=== PATIENT | male | born 1960 | race Caucasian/White ===

== ENCOUNTER 2021-11-08 10:49 | Emergency (ER) | payer OTHER ==
[~2021-11-08] VITALS: Ht 172.7 cm; Wt 117.9 kg
[~2021-11-08 10:49] MED LIST: ALBU90OI INH; AZIT250 PO; LISI5 PO; METPRE4DP PO
[2021-11-08 11:19] LABS: BASOPHILS ABSOLUTE AUTO 0.02 K/mm3 (0.00-0.23); BASOPHILS PERCENT AUTO 1 % (0-2); EOSINOPHILS ABSOLUTE AUTO 0.01 K/mm3 (0.00-0.68); EOSINOPHILS PERCENT AUTO 0 % (0-6); Hematocrit 41.7 % (37.0-53.0); Hemoglobin 12.8 g/dL (13.5-17.5); IMMATURE GRAN ABSOLUTE AUTO 0.04 K/mm3 (0.00-0.10); IMMATURE GRAN PERCENT AUTO 1 % (0-1); LYMPHOCYTES ABSOLUTE AUTO 0.72 K/mm3 (0.84-5.20); LYMPHOCYTES PERCENT AUTO 17 % (21-46); MONOCYTES ABSOLUTE AUTO 0.65 K/mm3 (0.16-1.47); MONOCYTES PERCENT AUTO 15 % (4-13); Mean Corpuscular HGB 23.1 pg (26.0-34.0); Mean Corpuscular HGB Conc 30.7 g/dL (31.5-36.5); Mean Corpuscular Volume 75 fL (80-100); Mean Platelet Volume 11.6 fL (9.1-12.4); NEUTROPHILS ABSOLUTE AUTO 2.81 K/mm3 (1.96-9.15); NEUTROPHILS PERCENT AUTO 66 % (41-73); Platelet Count 171 K/mm3 (150-400); RDW Coefficient Variation 14.6 % (11.7-14.2); RDW Standard Deviation 39.4 fL (35.1-46.3); Red Blood Cell Count 5.53 M/mm3 (4.30-5.90); White Blood Cell Count 4.25 K/mm3 (4.00-11.30)
[2021-11-08 11:49] LABS: Albumin, Blood 3.3 g/dL (3.4-5.0); Albumin/Globulin Ratio 0.8 (0.8-1.8); Bilirubin, Total 0.4 mg/dL (0.1-1.0); Bun/Creatinine Ratio 14.8 (12.0-20.0); Calcium, Blood 8.9 mg/dL (8.5-10.1); Creatinine, Blood 2.16 mg/dL (0.60-1.20); Globulin, Blood 4.1 g/dL (2.2-4.0); Potassium, Blood 4.3 mmol/L (3.5-5.5); Total Protein, Blood 7.4 g/dL (6.4-8.2)
[2021-11-08] MEDS ORDERED: HYDR1TAB94 PO (12:45)
[2021-11-08] MEDS ORDERED: AMLODIPINE BESY10 MG PO (13:31)
[2021-11-08] MEDS ORDERED: CARVEDILOL12.5 MG PO (13:31)
[2021-11-08] MEDS ORDERED: ALLO100 PO (13:31)
[2021-11-08] MEDS ORDERED: METO50 PO (13:31)
== END 2021-11-08 13:45 | disposition home or self-care (01) ==
LOC: ER 10:49
PROVIDERS: Emergency Medicine
DX: R55 Syncope and collapse (principal); U07.1 COVID-19; E86.0 Dehydration; F17.210 Nicotine dependence, cigarettes, uncomplicated; I10 Essential (primary) hypertension; Z85.46 Personal history of malignant neoplasm of prostate; Z79.899 Other long term (current) drug therapy; V49.40XA Driver injured in collision with unspecified motor vehicles in traffic accident, initial encounter
CPT/HCPCS: 70450; 71045; 72125; 80053; 84484; 85025; 86850; 86900; 86901; 93005; 93010; 99285-25; A9270; J7120

== ENCOUNTER 2025-08-24 | Inpatient (IN) | payer MEDICARE, OTHER ==
[~2025-08-24] VITALS: Ht 172.7 cm; Wt 110.0 kg
[~2025-08-24] MED LIST changes: +ALLO100 PO; +AMLODIPINE BESY10 MG PO; +CARVEDILOL12.5 MG PO; +HYDR1TAB94 PO; +METO50 PO
[2025-08-24] MEDS ORDERED: Ondansetron HCl 2 MG / ML 2ML Vial IV PRN ×2 (00:25→08:45)
[2025-08-24 00:29] LABS: BASOPHILS ABSOLUTE AUTO 0.04 K/mm3 (0.00-0.23); BASOPHILS PERCENT AUTO 0 % (0-2); EOSINOPHILS ABSOLUTE AUTO 0.04 K/mm3 (0.00-0.68); EOSINOPHILS PERCENT AUTO 0 % (0-6); Hematocrit 40.6 % (37.0-53.0); Hemoglobin 12.4 g/dL (13.5-17.5); IMMATURE GRAN ABSOLUTE AUTO 0.03 K/mm3 (0.00-0.10); IMMATURE GRAN PERCENT AUTO 0 % (0-1); LYMPHOCYTES ABSOLUTE AUTO 0.59 K/mm3 (0.84-5.20); LYMPHOCYTES PERCENT AUTO 6 % (21-46); MONOCYTES ABSOLUTE AUTO 0.53 K/mm3 (0.16-1.47); MONOCYTES PERCENT AUTO 6 % (4-13); Mean Corpuscular HGB Conc 30.5 g/dL (31.5-36.5); Mean Corpuscular Volume 75 fL (80-100); NEUTROPHILS ABSOLUTE AUTO 8.06 K/mm3 (1.96-9.15); NEUTROPHILS PERCENT AUTO 87 % (41-73); NRBC ABSOLUTE 0.00 K/mm3 (0.00-0.02); NRBC Auto 0.0 /100 WBC (0.0-0.2); Platelet Count 230 K/mm3 (150-400); RDW Coefficient Variation 14.6 % (11.7-14.2); RDW Standard Deviation 37.3 fL (35.1-46.3)
[2025-08-24] MEDS ORDERED: Morphine Sulfate 4 MG/1 ML Injection IV ONE (00:30)
[2025-08-24 00:50] LABS: Alanine Aminotransfer (ALT/SGP 15.0 U/L (12-78); Albumin, Blood 3.1 g/dL (3.4-5.0); Albumin/Globulin Ratio 0.7 (0.8-1.8); Anion Gap 2.0 mmol/L (3-11); Aspartate Aminotrans (AST/SGOT 10.0 U/L (12-37); Bilirubin, Total 0.9 mg/dL (0.1-1.0); Blood Urea Nitrogen 25.0 mg/dL (8-24); CO2, Blood 32.0 mmol/L (21-32); Calcium, Blood 9.0 mg/dL (8.5-10.1); Chloride, Blood 105.0 mmol/L (98-108); Creatinine, Blood 2.16 mg/dL (0.60-1.20); Globulin, Blood 4.2 g/dL (2.2-4.0); Glucose, Blood 117.0 mg/dL (70-99); Potassium, Blood 4.1 mmol/L (3.5-5.5); Sodium, Blood 135.0 mmol/L (136-145); Total Protein, Blood 7.3 g/dL (6.4-8.2)
[2025-08-24 02:01] LABS: Source, Urine Suprapubic Cath
[2025-08-24 02:38] LABS: Bilirubin, Urine Neg (Neg); Glucose Qualitative, Urine 3+ (Neg); Ketones, Urine 1+ (Neg); Leukocyte Esterase, Urine 3+ (Neg); Protein, Urine 3+ (Neg); Specific Gravity, Urine 1.020 (1.003-1.022); Urobilinogen, Urine NORM (Normal)
[2025-08-24 02:49] LABS: Color, Urine Brown (P-Yellow)
[2025-08-24 02:50] LABS: Red Blood Cells, Urine 50-100 /hpf (0-2); White Blood Cells, Urine 50-100 /hpf (0-5)
[2025-08-24] MEDS ORDERED: CefTRIAXone Sodium 1,000 MG in NS 100 ML IV ONE (03:00)
[2025-08-24] MEDS ORDERED: FLU VACC TS2025-26(6MOS UP)/PF 45 MCG/0.5 ML SYRINGE IM SCH (03:15)
[2025-08-24 03:54] VITALS: BP 148/86
[2025-08-24] MEDS ORDERED: FentaNYL Citrate 50 MCG/ML 2 ML Injection IV PRN (04:15)
[2025-08-24] MEDS ORDERED: HydrALAZINE HCl 20 MG / ML 1ML Vial IV PRN (04:15)
[2025-08-24] MEDS ORDERED: JARDIANCE10 MG PO (04:51)
[2025-08-24] MEDS ORDERED: VITAMIN D325 MC3 PO (04:51)
[2025-08-24] MEDS ORDERED: CALCITRIOL0.25 MC4 PO (04:52)
[2025-08-24] MEDS ORDERED: DOCU100 PO (04:53)
[2025-08-24] MEDS ORDERED: GABA100 PO (04:54)
--- NOTE | 2025-08-24 05:20 | NUR ---
SHIFT SUMMARY NOC PT A/O X 4. PLEASANT AND COOPERATIVE WITH CARE. VSS. ADMIT FOR SURGICAL OVERFLOW FOR SBO, SURGICAL CONSULT HAS BEEN CALLED IN FOR TODAY. PT ABD IS VERY DISTENDED AND PAINFUL, AND IS BEING MANAGED PER EMAR. PT CAME TO UNIT ON 2L/NC DUE TO GETTING MORPINE IN ED. PT HAS SUPRAPUBIC CATHETER THAT WAS REPLACED IN ED, WHICH HAS YELLOW DISCHARGE COMING FROM SITE, THIS WAS NOTED IN REPORT FROM ED. PT IS NPO. PT CURRENTLY RESTING WITH BED IN LOWEST POSITION, AND CALL LIGHT WITHIN REACH.
[2025-08-24 08:29] VITALS: BP 129/82
[2025-08-24] MEDS ORDERED: Enoxaparin 40 MG/0.4 ML SYR SC SCH (09:00)
--- NOTE | 2025-08-24 09:05 | NUR ---
PT HAD X2 EPISODES OF VOMTIING, GREEN-TINGED WITH COFFEE GROUNDS. PT REPORTING 10/10 ABD PAIN. MEDICATED PER DEC. DR CRAWFORD AND DR ALDRICH NOTIFIED. NO NEW ORDERS AT THIS TIME.
[2025-08-24] MEDS ORDERED: HYDROmorphone HCl/Pf 1MG SYR IV PRN ×2 (11:20→23:36)
[2025-08-24] MEDS ORDERED: Prochlorperazine Edisylate 10 mg Vial IV PRN (11:25)
[2025-08-24 15:13] VITALS: BP 147/102
--- NOTE | 2025-08-24 15:25 | NUR ---
SUDDEN EMESIS OF GREEN LIQUID
--- NOTE | 2025-08-24 17:23 | NUR ---
SHIFT SUMMARY PT IS A/OX4. SBA. PT REPORTING ABDOMINAL PAIN AND NAUSEA THROUGHOUT THIS SHIFT, MEDICATED PER DEC. PT VOMITING X3 THIS SHIFT. GREEN-TINGED IN COLOR WITH COFFEE GROUNDS. DR ALDRICH AND DR CRAWFORD AWARE. SMALL BOWEL FOLLOW THROUGH IN PROGRESS AT THIS TIME. SUPRAPUBIC CATHETER PATENT AND DRAINING DARK YELLOW COLORED URINE WITH RED SEDIMENT. PT REMAINS NPO. ON 1L NC, SATS >92%.
[2025-08-24] MEDS ORDERED: NS 1,000 ML IV SCH (19:35)
[2025-08-24 19:37] VITALS: BP 149/111
[2025-08-24 23:07] VITALS: BP 130/105
[2025-08-25] VITALS (72 sets, daily range): BP systolic 78–141; BP diastolic 52–94
--- NOTE | 2025-08-25 01:55 | NUR ---
PT PLACED ON BIOX DUE TO POSSIBLE ASPIRATION FROM SBO AND IV NARCOTICS FOR PAIN RELIEF. PT WAS ON 2L/NC DUE TO DAISY AND NOT ABLE TO TOLERATE CPAP PER PT. PT STARTED TO DESAT INTO LOW 80'S WITH HR IN 120'S-130'S. HOSPITALIST NOTIFIED AND O2 INCREASED TO 6L/HFNC AND NO TELE ORDER AT THIS TIME. RT NOTIFIED OF PT DESAT AND CAME TO ASSESS PT AFTER OXYMASK APPLIED DUE TO PT BEING A MOUTH BREATHER. PT SPO2 >90% WHEN ON 11L/OXYMASK.
--- NOTE | 2025-08-25 02:49 | NUR ---
HOSPITALIST NOTIFIED THAT PT O2 REQUIREMENTS HAVE INCREASED FROM 2L/NC TO 11L/OXYMASK WHILE SLEEPING TO MAINTAIN SPO2 >90%. PT HR ALSO HAS MAINTAINED FROM 110'S-120'S SINCE PT PLACED ON CONTINOUS PULSE OXIMETRY @ 2336. ORDERS FOR TELEMETRY AND ONE TIME DOSE IV LOPRESSOR 5 MG GIVEN.
[2025-08-25] MEDS ORDERED: Metoprolol Tartrate 1 MG/ML 5 ML VIAL IV ONE (02:50)
--- NOTE | 2025-08-25 04:41 | NUR ---
SHIFT SUMMARY NOC PT A/O X 4. PLEASANT AND COOPERATIVE WITH CARE. PT HS HAD INTERMITTENT N/V WITH GREEEN/BROWN EMESIS, BUT PT REPORTS LESS N/S, AND WAS MEDICATED PER EMAR. PT DESATS VERY QUICKLY WHILE ASLEEP AND REPORTS SEVERE DAISY, BUT CAN NOT TOLERATE CPAP. PT PLACED ON 6L/OXYMASK AND ENDED UP REQUIRING 12L/OXYMASK TO MAINTAIN SPO2 >92%, WHEN PT DECIDES TO KEEP MASK ON AND TAKES OFF FREQUENTLY. BP/HR ELEVATED WITH HR IN 110'S-130'S TOUCHING 140'S WITH EXERTION. PT PLACED ON TELE AND GIVEN IV LOPRESSOR 5 MG X ONE DOSE AND HR MAINTAINED SINUS RHYTHM IN MID 90'S-LOW 100'S. PT REMAINS NPO DUE TO SBO AND REPORTS NOT EATING OR DRINKING ANYTHING SINCE 08/23/25, HOSPITALIST NOTIFIED AND MAINTENENCE IVF NS @ 75 ML/HR STARTED. PT IS AWAITING SECOND SMALL BOWEL FOLLOW THROUGH TEST TODAY. PT SUPRAPUBIC CATHTER IS DRAINING W/O ISSUE AND NO DISCHARGE AROUND SITE NOTED. PT CURRENTLY RESTING WITH BED IN LOWEST POSITION, AND CALL LIGHT WITHIN REACH.
--- NOTE | 2025-08-25 04:54 | NUR ---
PT KEEPS TAKING OFF OXYMASK AND DESATS INTO LOW 80'S, DESPITE BEING EDUCATED ON THE RISKS WITH ALLOWING SPO2 TO REMAIN <90%. PT SPO2 IS MAINTAINING 85% ON 12L/OXYMASK.
[2025-08-25] MEDS ORDERED: Piperacillin/Tazobactam Sod 4.5 GM in NS 100 ML IV SCH ×2 (05:40→06:23)
[2025-08-25 06:02] LABS: BASOPHILS ABSOLUTE AUTO 0.05 K/mm3 (0.00-0.23); BASOPHILS PERCENT AUTO 0 % (0-2); EOSINOPHILS ABSOLUTE AUTO 0.00 K/mm3 (0.00-0.68); EOSINOPHILS PERCENT AUTO 0 % (0-6); Hematocrit 50.1 % (37.0-53.0); Hemoglobin 15.1 g/dL (13.5-17.5); IMMATURE GRAN ABSOLUTE AUTO 0.11 K/mm3 (0.00-0.10); IMMATURE GRAN PERCENT AUTO 1 % (0-1); LYMPHOCYTES ABSOLUTE AUTO 0.73 K/mm3 (0.84-5.20); LYMPHOCYTES PERCENT AUTO 3 % (21-46); MONOCYTES ABSOLUTE AUTO 1.19 K/mm3 (0.16-1.47); MONOCYTES PERCENT AUTO 5 % (4-13); Mean Corpuscular HGB Conc 30.1 g/dL (31.5-36.5); Mean Corpuscular Volume 77 fL (80-100); NEUTROPHILS ABSOLUTE AUTO 20.89 K/mm3 (1.96-9.15); NEUTROPHILS PERCENT AUTO 91 % (41-73); NRBC ABSOLUTE 0.03 K/mm3 (0.00-0.02); NRBC Auto 0.1 /100 WBC (0.0-0.2); Platelet Count 307 K/mm3 (150-400); RDW Coefficient Variation 16.6 % (11.7-14.2); RDW Standard Deviation 40.3 fL (35.1-46.3)
[2025-08-25 06:32] LABS: Alanine Aminotransfer (ALT/SGP 38.0 U/L (12-78); Albumin, Blood 3.4 g/dL (3.4-5.0); Albumin/Globulin Ratio 0.7 (0.8-1.8); Anion Gap 14.0 mmol/L (3-11); Aspartate Aminotrans (AST/SGOT 55.0 U/L (12-37); Bilirubin, Total 1.2 mg/dL (0.1-1.0); Blood Urea Nitrogen 34.0 mg/dL (8-24); CO2, Blood 26.0 mmol/L (21-32); Calcium, Blood 9.7 mg/dL (8.5-10.1); Chloride, Blood 104.0 mmol/L (98-108); Creatinine, Blood 3.46 mg/dL (0.60-1.20); Globulin, Blood 5.2 g/dL (2.2-4.0); Glucose, Blood 161.0 mg/dL (70-99); Potassium, Blood 4.6 mmol/L (3.5-5.5); Sodium, Blood 139.0 mmol/L (136-145); Total Protein, Blood 8.6 g/dL (6.4-8.2)
--- NOTE | 2025-08-25 06:45 | NUR ---
ICU RM 09 RN CALLED AND UPDATED ON PT BLOOD PRESSURE DROP FROM 117/89 PRE NGT TO 92/52 AND 84/60 POST AND IV LASIX 40 MG.
[2025-08-25] MEDS ORDERED: FentaNYL Citrate 50 MCG/ML 2 ML Injection IV PRN (06:55)
[2025-08-25] MEDS ORDERED: Naloxone HCl 0.4MG / ML 1ML Vial ONE (07:18)
--- NOTE | 2025-08-25 07:18 | NUR ---
NO AD/POLST ON FILE. NO POLST ON STATE POLST REGISRTY. PRIMARY RN STATED HE WILL BE CONTACTING PT'S FAMILY RE: RAPID RESPONSE AND PT'S TRANSFER TO ICU. PC TO REMAIN AVAILABLE NEEDED.
[2025-08-25] MEDS ORDERED: NS 500 ML IV ONE (07:20)
[2025-08-25] MEDS ORDERED: Naloxone HCl 1MG / ML 2ML SYR IV ONE (07:20)
[2025-08-25] MEDS ORDERED: Naloxone HCl 1MG / ML 2ML SYR IV PRN (07:25)
[2025-08-25] MEDS ORDERED: NS 1,000 ML IV SCH ×2 (07:25→20:55)
[2025-08-25] MEDS ORDERED: Piperacillin/Tazobactam Sod 3.375 GM in NS 100 ML IV SCH (08:00)
--- NOTE | 2025-08-25 08:30 | NUR ---
palliative care note: consult received due to rapid response this morning. pt transferred to ICU 9. medical record review completed. No polst or AD found on file or through [facility].
[2025-08-25 08:49] LABS: pH Blood Venous 7.34 (7.34-7.37)
[2025-08-25 08:50] LABS: Magnesium, Blood 2.3 mg/dL (1.6-2.4); Phosphorus, Blood 4.7 mg/dL (2.5-4.9)
--- NOTE | 2025-08-25 08:58 | NUR ---
PT TRANSFERRED TO ICU 09 @ 0710 WITH ALL BELONGINGS AND HOME MEDICATOINS IN PT LABELED GREEN MED BAG. BEDSIDE REPORT GIVEN TO YARN WINDER ANG AND ERIC OF CARE COMPLETED.
--- NOTE | 2025-08-25 09:05 | NUR ---
PT REQUESTED THAT HIS UNCLE YEVGENIY BE NOTIFIED OF TRANSRER TO ICU 09. YEVGENIY WAS CONTACED AND INFORMED OF PT TRANSFER TO ICU O9, THEY STATED THAT THEY LIVED UP IN [place] AND WILL DRIVE DOWN SOON POSSIBLE TO VISIT WITH PT. YEVGENIY NUMBER IS . WEB MASTER HAS NUMBER ON BOARD AND WAS INFORMED THAT CONTACT WITH FAMILY HAD BEEN COMPLETED.
--- NOTE | 2025-08-25 09:09 | NUR ---
CARE ASSUMPTION PT BROUGHT TO ICU 9 FROM MEDICAL FLOOR FOLLOWING RAPID RESPONSE. WHEN PT ARRIVED HE WAS MINIMALLY RESPONSIVE TO VERBAL STIMULI. DR. SEO AT BEDSIDE ORDERING IV NARCAN. AFTER NARCAN ADMINISTRATION PT BECOMING MORE RESPONSIVE AND 02 NEEDS DECREASING. PT'S BP LOW SO LEVOPHED GTT STARTED ALONG WITH NS BOLUS. PT'S BP IMPROVING AND LEVOPHED GTT TITRATED OFF, NS INFUSING AT 100 ML/HR. BP STABLE W MAP >65. DR. TERAN AND DR. CRAWFORD UPDATED ON PT'S CONDITION. PER DR. CRAWFORD PT TO POSSIBLY HAVE SURGERY TOMMOROW SO IT IS OK TO GIVE PT HIS LOVENOX TODAY. PT CURRENTLY RESTING IN BED APPEARING COMFORTABLE ON 2L OXYMASK. PT'S UNCLE NOTIFIED OF CHANGE IN PT'S CONDITION AND PT'S LOCATION. PT'S UNCLE VERBALIZING INTENT ON COMING TO THE HOSPITAL.
--- NOTE | 2025-08-25 09:09 | NUR ---
ALL EQUIPMENT FROM MEDICAL FLOOR TO INCLUDE BED, IV PUMP WITH 2 CHANNELS, TELEMETRY BOX, BLUE TOOTH BIOX CHIP, AND O2 TANK RETURNED TO UNIT CLEANED PER PROTOCOL. TELE BOX TUBED BACK TO PCU TERMITE TECHNICIAN.
--- NOTE | 2025-08-25 09:12 | NUR ---
DURING SPOT CHECK AROUND 0530 PT FOUND TO HAVE COARSE/CRACKLES IN LUNGS WITH TROUBLE BREATHING AND INABLITY TO COUGH. RT ASSESSED PT WELL. HOSPITALIST WAS ON UNIT AND ALERTED TO CHANGE IN PT CONDITION AND ASSESSED PT AND ORDERED NGT PLACEMENT WITH VERIFICATION WITH IV LASIX X 1, WELL CMP, BNP, CBC. 1V CXR, START IV ABX ZOSYN 4.5G Q6. NGT PLACED AND ALL LABS AND MEDICATIONS ORDERED WITH LASIX GIVEN AND TRANSFER TO ICU 09. NGT OUTPUT TOTALED 4.8L UPON DEPARTURE TO ICU.
[2025-08-25] MEDS ORDERED: NS 250 ML IV PRN (16:05)
--- NOTE | 2025-08-25 17:15 | NUR ---
SHIFT SUMMARY PATIENT A&OX4 AND ABLE TO MAKE NEEDS KNOWN. NO FOCAL DEFICITS. PATIENT HR SINUS TACH IN THE 100S-110S. PICC TO KHADRA PATENT INFUSING LEVOPHED GTT PER EMAR. SEE FLOWSHEET FOR TITRATIONS. BP STABLE WITH MAPS >65. LR INFUSING AT 125ML/HR. PATIENT ON 2L O2 VIA NC WITH SPO2 >90%. NGT PATENT AND DRAINING BILE TO LOW INTERMITTENT SUCTION. SP CATH PATENT AND DRAINING SCANT YELLOW URINE TO GRAVITY. PROVIDER AWARE. PATIENT TO HAVE SURGERY TOMORROW AT [address] CRAWFORD. HE WILL DO CONSENT IN THE MORNING. FAMILY AT BEDSIDE TODAY UPDATED ON PLAN OF CARE. CALL LIGHT IN REACH. BED IN LOWEST POSITION.
[2025-08-25 20:32] LABS: Anion Gap 8.0 mmol/L (3-11); Blood Urea Nitrogen 50.0 mg/dL (8-24); CO2, Blood 33.0 mmol/L (21-32); Calcium, Blood 8.9 mg/dL (8.5-10.1); Chloride, Blood 104.0 mmol/L (98-108); Creatinine, Blood 4.58 mg/dL (0.60-1.20); Glucose, Blood 119.0 mg/dL (70-99); Potassium, Blood 4.1 mmol/L (3.5-5.5); Sodium, Blood 141.0 mmol/L (136-145)
[2025-08-25] MEDS ORDERED: NS 1,000 ML BAG IR SCH (20:50)
[2025-08-26] VITALS (100 sets, daily range): BP systolic 63–148; BP diastolic 43–93
--- NOTE | 2025-08-26 02:00 | NUR ---
PT UPDATE: PT HAD CARDIAC RHYTHM CHANGE W/ SUSTAINED HR IN 180S-200. DR SEO NOTIFIED. ORDERS OBTAINED FOR ADENOSINE, SEE EMAR FOR ADMINISTRATION. PT C/O OF 5/10 CHEST PAIN, DENIED SOB. SBP SOFT, ORDERS FOR NS BOLUS OBTAINED. DR SEO AT BEDSIDE. PT PREPARED FOR CARDIOVERSION. DR SEO DISCUSSED PROCEDURE W/PT, WITNESSED BY THIS RN. PT AGREEABLE TO PROCEDURE. PT CARDIOVERTED AT 0243. PT TOLERATED PROCEDURE WELL. PT CONTINUED TO SUSTAIN ELEVATED HR IN 180S. AMIO PUSH ORDERED AND ADMINISTERED W/ NO RHYTHM CHANGE OBSERVED. SBP REMAINED SOFT W/MAP<65 DESPITE BOLUS. ADDITIONAL NS BOLUSES ORDERED AND ADMINSTERED. SBP REMAINED SOFT, MAP<65. LEVOPHED GTT RESTARTED, SEE FLOWSHEET FOR TITRATIONS, TO MAINTAIN MAP>65.
[2025-08-26 02:33] LABS: Hematocrit 39.4 % (37.0-53.0); Hemoglobin 11.8 g/dL (13.5-17.5); Mean Corpuscular HGB Conc 29.9 g/dL (31.5-36.5); Mean Corpuscular Volume 78 fL (80-100); NRBC ABSOLUTE 0.00 K/mm3 (0.00-0.02); NRBC Auto 0.0 /100 WBC (0.0-0.2); Platelet Count 211 K/mm3 (150-400); RDW Coefficient Variation 15.4 % (11.7-14.2); RDW Standard Deviation 41.0 fL (35.1-46.3)
[2025-08-26] MEDS ORDERED: NS 1,000 ML IV ONE (02:35)
[2025-08-26] MEDS ORDERED: NS 500 ML IV ONE ×2 (02:35→03:55)
[2025-08-26] MEDS ORDERED: Midazolam HCl 1MG / ML 2ML Vial ONE ×2 (02:37→09:29)
[2025-08-26] MEDS ORDERED: Midazolam HCl 1MG / ML 2ML Vial IV ONE ×2 (02:40→04:40)
[2025-08-26] MEDS ORDERED: FentaNYL Citrate 50 MCG/ML 2 ML Injection ONE ×5 (02:44→11:38)
[2025-08-26] MEDS ORDERED: Amiodarone HCl 450 MG in NS 250 ML IV SCH (02:50)
[2025-08-26 03:04] LABS: BAND PERCENT MAN 18 % (0-8); BASOPHILS ABSOLUTE MAN 0.00 K/mm3 (0.00-0.23); BASOPHILS PERCENT MAN 0 % (0-2); EOSINOPHILS ABSOLUTE MAN 0.00 K/mm3 (0.00-0.68); EOSINOPHILS PERCENT MAN 0 % (0-6); LYMPHOCYTES ABSOLUTE MAN 0.47 K/mm3 (0.84-5.20); LYMPHOCYTES PERCENT MAN 4 % (21-46); MONOCYTES ABSOLUTE MAN 0.47 K/mm3 (0.16-1.47); MONOCYTES PERCENT MAN 4 % (4-13); NEUTROPHILS ABSOLUTE MAN 10.82 K/mm3 (1.96-9.15); SEG NEUTROPHILS PERCENT MAN 74 % (41-73)
[2025-08-26 03:11] LABS: Magnesium, Blood 2.4 mg/dL (1.6-2.4)
[2025-08-26] MEDS ORDERED: NS 1,000 ML IV SCH (03:15)
[2025-08-26 03:22] LABS: Alanine Aminotransfer (ALT/SGP 20.0 U/L (12-78); Albumin, Blood 2.5 g/dL (3.4-5.0); Anion Gap 7.0 mmol/L (3-11); Aspartate Aminotrans (AST/SGOT 17.0 U/L (12-37); Bilirubin, Total 1.0 mg/dL (0.1-1.0); Blood Urea Nitrogen 53.0 mg/dL (8-24); CO2, Blood 34.0 mmol/L (21-32); Calcium, Blood 8.2 mg/dL (8.5-10.1); Chloride, Blood 107.0 mmol/L (98-108); Creatinine, Blood 4.45 mg/dL (0.60-1.20); Glucose, Blood 116.0 mg/dL (70-99); Phosphorus, Blood 3.9 mg/dL (2.5-4.9); Potassium, Blood 4.0 mmol/L (3.5-5.5); Sodium, Blood 144.0 mmol/L (136-145)
[2025-08-26 03:23] LABS: Albumin/Globulin Ratio 0.6 (0.8-1.8); Globulin, Blood 4.0 g/dL (2.2-4.0); Total Protein, Blood 6.5 g/dL (6.4-8.2)
[2025-08-26] MEDS ORDERED: FentaNYL Citrate 50 MCG/ML 2 ML Injection IV ONE ×2 (03:25→04:35)
[2025-08-26] MEDS ORDERED: Amiodarone HCl 50 MG / ML 3 ML Amp IV ONE ×2 (03:25→03:39)
[2025-08-26] MEDS ORDERED: Cefepime HCl 1,000 MG in NS 100 ML IV SCH ×2 (03:40→03:43)
--- NOTE | 2025-08-26 04:30 | NUR ---
PT UPDATE: DR SEO BACK TO ROOM. PT CONTINUES TO HAVE SUSTAINED HR IN 150S-200S.PT PREPARED FOR SECOND CARDIOVERSION. 50MCG FENTANYL GIVEN AT 0437 1MG VERSED GIVEN AT 0438 PT CARDIOVERTED AT 2005 @0440- NO RHYTM CHANGE OBSERVED.
[2025-08-26] MEDS ORDERED: Midazolam HCL 1 MG/ML 5MLVIAL ONE (05:55)
--- NOTE | 2025-08-26 06:00 | NUR ---
PT UPDATE: DR SEO BACK TO ROOM. PT ENDORSING CHEST PAIN. HR CONTINUES TO BE ELEVATED. DR SEO DISCUSSED RISKS AND BENEFITS OF BACK TO BACK CARDIOVERSION. PT REQUESTING AND AGREEABLE TO PROCEDURE. 0603-2MG VERSED GIVEN 0605-50MCG FENTANYL GIVEN 0607- PT CARDIOVERTED W/ NO RHYTHM CHANGE
[2025-08-26] MEDS ORDERED: Midazolam HCL 1 MG/ML 5MLVIAL IV ONE (06:15)
--- NOTE | 2025-08-26 06:30 | NUR ---
SHIFT SUMMARY: PT HAD A VERY LONG NIGHT. HE REMAINS VERY DROWSY THIS MORNING, AROUSES EASILY TO VOICE. PT REMAINS A&OX 3-4, UNSURE OF DATE/MONTH AT TIMES, BUT ABLE TO COMMUNICATE APPROPRIATELY AND MAKE NEEDS KNOWN. AFEBRILE. PT HAD CARDIAC CHANGE LAST NIGHT W/ SUSTAINED ELEVATED HR IN THE 180S-200S. HEART RHYTM INTERMITTENTLY CHANGED BETWEEN SINUS TACH, AFIB/AFLUTTER. PT ENDORSED CHEST PAIN DURING THESE EPISODES. DR SEO CALLED MULTIPLE TIMES FOR STATUS UPDATES, ORDERS OBTAINED. DR SOE ALSO CAME TO BEDSIDE ON SEVERAL OCCASSIONS. SEE PREVIOUS NOTES. PT CONTINUES TO HAVE ELEVATED SUSTAINED HR DESPITE INTERVENTIONS AND ENDORSES CHEST PAIN. PT REQUIRED INCREASED OXYGEN DEMANDS DUE TO CARDIAC CHANGES LAST NIGHT. PT STARTED SHIFT ON 2L O2 VIA NC W/ SATS>93%, NOW PT ON OXYMASK AT 10L 02, SATS>93%. PT DENIES ABD PAIN BUT DID HAVE SMALL EPISODE IN WHICH HE ENDORSED NAUSEA. NO VOMITING. NG TUBE REMAINS IN PLACE, DRAINING TO LIS. SUPRAPUBIC CATH REMAINS PATENT, DRAINING TO GRAVITY. URINE APPEARS CLEARER THIS MORNING. PT HAD GOOD OUTPUT FROM BOTH NGT AND CATHETER, SEE I/O'S. PICC REMAINS IN KHADRA. INFUSING ARE NS AT 125ML/HR, PHENYLEPHRINE 30MCG/MIN, AND AMIODORONE GTT. THIS RN TO REPORT TO ONCOMING RN. CARE CONTINUES.
[2025-08-26] MEDS ORDERED: NUBEQA300 MG PO (06:32)
--- NOTE | 2025-08-26 07:00 | NUR ---
CARE ASSUMPTION DURING BEDSIDE SHIFT REPORT W VINEET RN THE PT IS LYING IN BED ALERT AND ORIENTED UPON OUR ENTRY TO THE . PT'S MONITOR SHOWING AFIB 150-180. BP W STABLE MAP > 65 W PHENYLEPHRINE INFUSING AT 30 MCG/MIN. SPO2 >92% ON 4L OXYMASK. PT REPORTING 4/10 CHEST TIGHTNESS BUT DOES NOT APPEAR IN DISTRESS HE IS RESTING COMFORTABLY AFTER OUR INTERACTION. SINUS RYTHYM CONVERSION AT APPROX 0800 THE PT SPONTANEOUSLY CONVERTED TO SR 90'S. DR. BROWN NOTIFIED OF THIS AND VERBAL ORDERS TO GIVE THE PT DIGOXIN AND TO KEEP PT ON AMIODARONE GTT 1MG/HR CONTINUOUS UNTIL AFTER HE HAS SURGERY. DR. CRAWFORD CALLED AND NOTIFIED OF CHANGE IN PT'S CONDITION. DR. CRAWFORD VERBALIZING INTENTION OF SPEAKING WITH ANETHESIA TEAM AND CALL THIS RN BACK WITH THE PLAN FOR SURGERY. HEPARIN GTT INITIATION TO BE HELD UNTIL PLAN FOR SURGERY IS MADE. PHARMACY NOTIIFED OF THIS.
[2025-08-26 09:27] LABS: Anti-Xa UFH, PHA Monitoring <0.10 IU/mL; Prothrombin Time Results 12.8 Sec (9.7-11.5)
[2025-08-26] MEDS ORDERED: Rocuronium Bromide 10 MG/ML 5ML Injection IV ONE (09:29)
[2025-08-26] MEDS ORDERED: Bupivacaine 0.5% HCl 5 MG/ML 30MLVIAL ONE (09:38)
--- NOTE | 2025-08-26 09:54 | NUR ---
PT TO OR FOR SURGERY
--- NOTE | 2025-08-26 10:19 | NUR ---
PT PRE-OP'ED IN ICU 9 HE IS ON AN AMIODERONE AND PHYLEPHERINE DRIP. Pre-Op teaching done. Pt verbalizes understanding. History, Chart, Medications and Allergies reviewed before start of procedure.Patient confirms NPO status and agrees with scheduled surgery. PT HAS NG TUBE DRAINING DARK BROWN FLUID PT HAS SUPRAPUBIC CATH DRAINING YELLOW URINE
[2025-08-26] MEDS ORDERED: HYDROmorphone HCl/Pf 1MG SYR IV PRN (10:25)
[2025-08-26] MEDS ORDERED: Ondansetron HCl 2 MG / ML 2ML Vial IV PRN (10:25)
[2025-08-26] MEDS ORDERED: FentaNYL Citrate 50 MCG/ML 2 ML Injection IV PRN (10:30)
[2025-08-26] MEDS ORDERED: Sugammadex Sodium 200 MG/2ML SDV (100 MG/ML) ONE (11:26)
[2025-08-26] MEDS ORDERED: OxyCODONE 5 mg/Acetamin 325 mg TABLET PO PRN (12:15)
--- NOTE | 2025-08-26 13:00 | NUR ---
ARRIVAL TO UNIT - 1204 PT ARRIVED TO UNIT VIA BED FROM OR. BEDSIDE REPORT GIVEN. PT ROUSABLE TO VERBAL STIMULI, ABLE TO MAKE NEEDS KNOWN. RESPONDS TO QUESTIONS APPROPRIATELY. SPO2 >96% ON 100% NONREBREATHER MASK. HR 80-90s, MAP >65 c PHENYLEPHRINE PER FLOWSHEET. WOUND VAC ULTRA TO MIDLINE ABD C/D/I c SUCTION INTACT, NO DRAINAGE. BOWEL TONES ACTIVE. NG TUBE TO LIS c BROWN/BILE OUTPUT. PT DENIES PAIN. DR CONSULT - 1239 DR. BROWN MADE AWARE PT BACK TO ROOM S/P SURGERY. ORDER TO CONTINUTE AMIODARONE @ 0.5MCG/MIN UNTIL HE DECIDES TO DC THE MEDICATION. HR NSR 80-90s. RESPIRATORY - 1242 RT TRANSITION TO AIRVO TO MAINTAIN SPO2 >90%. 40LMP @ 60% FIO2. FAMILY UPDATE - 1300 UPDATE GIVEN TO YEVGENIY (UNCLE). PT AWARE & VOICES APPRECIATION R/T FAMILY COMMUNICATION
--- NOTE | 2025-08-26 14:20 | NUR ---
UPDATE WHILE PT SLEEPING HE CONVERTED BACK TO AFIB RVR 150'S. PT ASYMPTOMATIC AND BP STABLE MAP >65. DR. BROWN NOTIFIED OF THIS CHANGE AND NO NEW ORDERS AT THIS TIME. DR. TERAN CONTACTED REGARDING HEPARIN GTT TO WHICH HE STATED WE WILL HOLD OFF ON HEPARIN GTT UNTIL TOMORROW AM WHERE HE WILL REASSESS ANTICOAGULATION.
--- NOTE | 2025-08-26 14:37 | NUR ---
DR CONSULT UPDATE ON PT CONDITION. MD ORDER NG TUBE TO DRAIN TO GRAVITY. DIET : SIPS n CHIPS, ADVISE PT TO "GO SLOW". PO MEDS OK. START HEPARIN IN AM.
[2025-08-26] MEDS ORDERED: Ciprofloxacin 400MG/D5 200ML 200 ML IV SCH (15:00)
--- NOTE | 2025-08-26 17:54 | NUR ---
SHIFT SUMMARY POD 0 EX LAP c DOM & SMALL BOWEL RESECTION. A&O x4, FOLLOWS COMMANDS. SPO2 >94% ON AIRVO 20L/35% FIO2. HR CURRENTLY 140-160s, MAP >65. PT NSR FROM APPROX 0800 TO 1400 THEN PT RESUMED ELEVATED HR AND MAINTAINED FOR REMAINDER OF SHIFT. AMIODARONE INFUSING @ 0.5MCG/MIN UNTIL ORDERS MEDICATION DC. PHENYLEPHRINE OFF SINCE APPROX 1230. NG TUBE DRAINING TO GRAVITY c BROWN/BILE OUTPUT. NPO c SIPS n CHIPS, PT TOLERATING WELL, DENIES N/V. SUPRAPUBIC CATH DRAINING YELLOW URINE. PREVENA DRESSING TO MIDLINE ABD C/D/I, MAINTAINING SUCTION, NO OUTPUT. PT ABLE TO REPOSITION IND IN BED. IV FLUIDS/ABX INFUSING PER EMAR. CALL LIGHT IN REACH, REPORT TO BE GIVEN TO TYREE SORIANO.
--- NOTE | 2025-08-26 22:22 | NUR ---
NG TUBE REMOVAL PT INCIDENTLY REMOVED HIS NG TUBE WHILE SLEEPING. THIS RN HELPED DROP NEW NG TUBE INTO THE STOMACH, AIR INSTILLED HEARD UPON OSCULTATION AND GASTRIC CONTENTS DRAINING TO GRAVITY.
[2025-08-26] MEDS ORDERED: LORazepam 2 MG/ML 1ML Injection IV PRN (23:15)
[2025-08-27] VITALS (37 sets, daily range): BP systolic 108–178; BP diastolic 70–101
[2025-08-27 04:45] LABS: Hematocrit 31.3 % (37.0-53.0); Hemoglobin 9.2 g/dL (13.5-17.5); Mean Corpuscular HGB Conc 29.4 g/dL (31.5-36.5); Mean Corpuscular Volume 78 fL (80-100); NRBC ABSOLUTE 0.00 K/mm3 (0.00-0.02); NRBC Auto 0.0 /100 WBC (0.0-0.2); Platelet Count 153 K/mm3 (150-400); RDW Coefficient Variation 14.6 % (11.7-14.2); RDW Standard Deviation 41.0 fL (35.1-46.3)
[2025-08-27 05:10] LABS: Magnesium, Blood 1.7 mg/dL (1.6-2.4)
--- NOTE | 2025-08-27 05:29 | NUR ---
SHIFT SUMMARY PT REMAINS ALERT AND ORIENTED T/O THE NIGHT, ABLE TO MAKE NEEDS KNOWN, AND FOLLOWS COMMANDS, PT FEBRILE T/O THE NIGHT WITH T-MAX OF 101.1 AND MEDICATED WITH TYLENOL. PT CONTINUES ON AIRVO @ 35L AND 45% FIO2 WITH SPO2 >95%, PT DENIES SOB. PT HAS REMAINED IN NORMAL SINUS RHYTHM WITH HR IN THE 90'S AND SBP IN THE 120-130'S WITH AND INCREASE IN SBP TOWARDS THE END OF SHIFT @ 150. PT DENIES CHEST PAIN/PRESSURE. AMIODARONE GTT INFUSING @ 0.5MG/HR. WOUNDVAC TO SURGICAL SITE C/D/I AND NO DRAINAGE NOTED AT THIS TIME. NG TUBE IS PATENT AND DRAINING TO GRAVITY DARK BROWN BILE. NO BM THIS SHIFT, PT HAD THE URGE TO VOID X2. SUPRAPUBIC CATHETER IN PLACE, PATENT, AND DRAINING TO GRAVITY. NS INFUSING @ 125ML/HR. CALL LIGHT WIHTIN REACH, BED IN LOWEST POSITION, AND NO IMMEDIATE NEEDS NOTED AT THIS TIME. WILL REPORT TO ONCOMING RN.
[2025-08-27 05:53] LABS: Anion Gap 9.0 mmol/L (3-11); Blood Urea Nitrogen 43.0 mg/dL (8-24); CO2, Blood 25.0 mmol/L (21-32); Chloride, Blood 114.0 mmol/L (98-108); Creatinine, Blood 2.68 mg/dL (0.60-1.20); Glucose, Blood 89.0 mg/dL (70-99); Potassium, Blood 3.0 mmol/L (3.5-5.5); Sodium, Blood 145.0 mmol/L (136-145)
[2025-08-27 06:02] LABS: Calcium, Blood 5.8 mg/dL (8.5-10.1)
[2025-08-27] MEDS ORDERED: Mag Sulfate 1 GM/D5% 100ML 100 ML IV ONE (06:15)
[2025-08-27] MEDS ORDERED: Calcium Gluconate 10% 1,000 MG in NS 50 ML IV ONE (06:15)
[2025-08-27] MEDS ORDERED: CALCIUM GLUC IN NACL, ISO-OSM 50 ML IV ONE ×2 (07:55→15:20)
[2025-08-27] MEDS ORDERED: Enoxaparin 30 MG/0.3 ML SYR SC SCH (09:00)
[2025-08-27 14:41] LABS: Alanine Aminotransfer (ALT/SGP 13.0 U/L (12-78); Albumin, Blood 2.0 g/dL (3.4-5.0); Albumin/Globulin Ratio 0.5 (0.8-1.8); Anion Gap 7.0 mmol/L (3-11); Aspartate Aminotrans (AST/SGOT 16.0 U/L (12-37); Bilirubin, Total 0.8 mg/dL (0.1-1.0); Blood Urea Nitrogen 43.0 mg/dL (8-24); CO2, Blood 29.0 mmol/L (21-32); Calcium, Blood 7.0 mg/dL (8.5-10.1); Chloride, Blood 108.0 mmol/L (98-108); Creatinine, Blood 2.75 mg/dL (0.60-1.20); Globulin, Blood 3.9 g/dL (2.2-4.0); Glucose, Blood 99.0 mg/dL (70-99); Magnesium, Blood 2.3 mg/dL (1.6-2.4); Potassium, Blood 4.0 mmol/L (3.5-5.5); Sodium, Blood 140.0 mmol/L (136-145); Total Protein, Blood 5.9 g/dL (6.4-8.2)
--- NOTE | 2025-08-27 15:12 | NUR ---
AFTERNOON LABS: DISCUSSED AFTERNOON POTASSIUM, MAGNESIUM AND CALCIUM LEVELS WITH DR. TERAN. NEW ORDERS RECEIVED AND ENTERED.
--- NOTE | 2025-08-27 18:36 | NUR ---
Patient tranistioned from ICU to PCU status today. No longer requiring vasopressors, able to tolerate a Full Liquid diet, had multible bowel movements. Adbomen had been discribed more as an "ache" then a pain and patient did not want pharmacutical intervention for the ache. Patient was able to mobilize out of bed to the chair with minimal assist, teaching was done for patient not to use abd muscles and abd binder used for time OOB. Patient also started on Eliquis today (see MAR) education provided on medication, focus on s/s bleeding and anticoagulation handout given to patient. Parents visited patient today. Was attentitive to patient and patient was pleasant to interact with throughout the day.
--- NOTE | 2025-08-27 20:35 | NUR ---
TRANSFER SUMMARY PT A/OX4, NSR HR 70'S, BP STABLE, ON CPAP AT NIGHT, RA TO 2L NC PRN. SATS >94%. PT HAS SUPRAPUBIC CATH, GOOD UOP. MULTIPLE BMS PER DAY SHIFT. TOLERATING PO INTAKE. WOUND VAC IN PLACE. BEDSIDE SHIFT REPORT TO BRANDON SORIANO. ALL QUESTIONS ANSWERED. PT WAS TRANSPORTED TO NEW ROOM VIA WITH 2 RNS. NO ACUTE EVENTS. ALL BELONGINGS AND CHART TAKEN WITH PT TO NEW ROOM. PT SETTLED INTO BED WITH ONCOMING RN AND LEAD DRIVER.
--- NOTE | 2025-08-27 20:45 | NUR ---
TRANSFER NOTE REPORT RECEIVED FROM TELEPHONE SERVICE ADVISER AND PT TRANSFERRED TO PCU 3 AT APPROX 2015 VIA WHEELCHAIR. HE IS ABLE TO AMBULATE INDEPENDENTLY FROM WHEELCHAIR TO HOSPITAL BED. HE IS ALERT AND ORIENTED, ON RA, VSS. HE REPORTS 5/10 PAIN THAT HE STATES IS GREATLY IMPROVED FROM PREVIOUS DAYS. WOUND VAC IN PLACE, MIDLINE ABDOMINAL INCISION DRESSING CLEAN, DRY, AND INTACT. CHRONIC SUPRAPUBIC CATHETER IN PLACE AND DRAINING TO GRAVITY. CPAP AT BEDSIDE FOR NOC USE.
[2025-08-28 03:25] VITALS: BP 133/108
[2025-08-28 03:51] LABS: Hematocrit 33.8 % (37.0-53.0); Hemoglobin 10.1 g/dL (13.5-17.5); Mean Corpuscular HGB Conc 29.9 g/dL (31.5-36.5); Mean Corpuscular Volume 77 fL (80-100); NRBC ABSOLUTE 0.00 K/mm3 (0.00-0.02); NRBC Auto 0.0 /100 WBC (0.0-0.2); Platelet Count 160 K/mm3 (150-400); RDW Coefficient Variation 14.4 % (11.7-14.2); RDW Standard Deviation 40.1 fL (35.1-46.3)
[2025-08-28 04:11] LABS: Anion Gap 9.0 mmol/L (3-11); Blood Urea Nitrogen 37.0 mg/dL (8-24); CO2, Blood 26.0 mmol/L (21-32); Calcium, Blood 7.0 mg/dL (8.5-10.1); Chloride, Blood 108.0 mmol/L (98-108); Creatinine, Blood 2.32 mg/dL (0.60-1.20); Glucose, Blood 119.0 mg/dL (70-99); Potassium, Blood 3.6 mmol/L (3.5-5.5); Sodium, Blood 139.0 mmol/L (136-145)
--- NOTE | 2025-08-28 06:15 | NUR ---
SHIFT SUMMARY PT REMAINED A/OX4, ON CPAP WHILE SLEEPING WITH 3L BLEED IN, TREATED ABDOMINAL INCISION PAIN PER EMAR, PT ENDORSES IMPROVEMENT IN PAIN SINCE SURGERY. WOUND VAC IN PLACE. NO DRAINAGE AT THIS TIME. PT ABLE TO HAVE BM, ABDIRASHID RED BLOOD NOTED IN BROWN, LOOSE BM , PT STATES HE HAS A FISTULA AND THIS IS NORMAL FOR HIM. NO ACUTE EVENTS THIS SHIFT.
[2025-08-28] MEDS ORDERED: Cefepime HCl 1,000 MG in NS 100 ML IV SCH (08:00)
[2025-08-28] MEDS ORDERED: Ciprofloxacin 400MG/D5 200ML 200 ML IV SCH (09:00)
[2025-08-28 09:19] VITALS: BP 146/83
--- NOTE | 2025-08-28 09:27 | NUR ---
Blood in stool. Notified both providers. Stephania fang per Dr. Rivera. [facility] records for endo and colonoscopy pending.
--- NOTE | 2025-08-28 11:02 | NUR ---
Pt states he is very tired, asking for something to help him sleep during the day today. Explained that it would be counterproductive given the care and rounding which happens during the day. IV antibiotic will be done in about 15 minutes. Told pt I would close his door, dim the lights and give him some uninterrupted time to nap after saline locking the IV. He agreed to this.
[2025-08-28 11:21] VITALS: BP 139/87
--- NOTE | 2025-08-28 15:34 | NUR ---
Pt arrived to PCU 8. Room has been mitigated. Mother of pt is at her bedside. Sitter is also in the room. Dr. Spears came to see the patient.
[2025-08-28 16:18] VITALS: BP 153/87
--- NOTE | 2025-08-28 18:58 | NUR ---
Pt had not enough relief with just 1 percocet; second tablet given for abdominal pain. Pt is using pillow for bracing when coughing. States he has been using the incentive spirometer today. He was OOB several times today, for toileting and also to sit up in the recliner for "quite a while" the pt states.
[2025-08-28 20:01] VITALS: BP 151/88
[2025-08-28 23:37] VITALS: BP 149/76
[2025-08-29 05:08] LABS: Hematocrit 32.9 % (37.0-53.0); Hemoglobin 9.8 g/dL (13.5-17.5); Mean Corpuscular HGB Conc 29.8 g/dL (31.5-36.5); Mean Corpuscular Volume 79 fL (80-100); NRBC ABSOLUTE 0.00 K/mm3 (0.00-0.02); NRBC Auto 0.0 /100 WBC (0.0-0.2); Platelet Count 153 K/mm3 (150-400); RDW Coefficient Variation 14.4 % (11.7-14.2); RDW Standard Deviation 40.3 fL (35.1-46.3)
[2025-08-29 05:32] LABS: Anion Gap 8.0 mmol/L (3-11); Blood Urea Nitrogen 30.0 mg/dL (8-24); CO2, Blood 24.0 mmol/L (21-32); Calcium, Blood 7.2 mg/dL (8.5-10.1); Chloride, Blood 110.0 mmol/L (98-108); Creatinine, Blood 1.94 mg/dL (0.60-1.20); Glucose, Blood 115.0 mg/dL (70-99); Potassium, Blood 3.9 mmol/L (3.5-5.5); Sodium, Blood 138.0 mmol/L (136-145)
--- NOTE | 2025-08-29 05:38 | NUR ---
SHIFT SUMMARY PT REMAINED A/O, WORE CPAP ALL NIGHT WITH 3L BLEED-IN, TOLERATED WELL. SR, VSS, SATS ABOVE 92%. NO ACUTE EVENTS OVERNIGHT.
[2025-08-29 09:42] VITALS: BP 137/80
--- NOTE | 2025-08-29 10:34 | NUR ---
Pt was up to shower today, assisted by PCT for bathing, shaving, drying and dressing. Pt was OOB for total of about an hour. Back to bed to assess the wound vac dressing. Suction was not working but Dr. Frye came by to round and was able to correct it. Dr. Frye states ok for discharge tomorrow, and that wound vac dressing should be dc'd before discharge. Dr. See notified.
[2025-08-29 14:53] VITALS: BP 132/72
[2025-08-29 19:35] VITALS: BP 140/75
[2025-08-29] MEDS ORDERED: Nitrofurantoin/Nitrofuran Mac 100 MG Cap PO SCH (21:00)
[2025-08-30 00:28] VITALS: BP 133/79
[2025-08-30 03:03] VITALS: BP 135/79
--- NOTE | 2025-08-30 04:03 | NUR ---
SHIFT SUMMARY: PT IS A&OX4, PLEASANT AND COOPERATIVE WITH CARE. VSS ON RA AND CPAP WITH A 3L BLEED IN. SATS >95%. SR IN THE 80 S-90' S..HE WAS ABLE TO SLEEP MOST OF NIGHT. NO C/O PAIN. TOLERATING A SOFT AND BITE SIZED LEVEL 6 DIET. TAKES MEDS WHOLE WITH WATER. PICC LINE INTACT TO LEFT UPPER ARM SL. SUPRAPUBIC CATHETER INTACT DRAINING PINKISH TINGED URINE. GOT UP TO THE COMMODE WITH A 1 PERSON ASSIST WITH LOOSE STOOLS WITH SMALL AMOUNTS OF BLOOD IN IT WHICH IS NORMAL FOR HIM. REMAINS ON MACROBID BID AND CEFEPIME Q8HR. . BED IN LOWEST POSITION, CALL LIGHT WITHIN REACH. CALLS APPROPRIATELY AND IS ABLE TO ADVOCATE NEEDS EFFECTIVELY. POSSIBLE DC TO HOME TODAY.
[2025-08-30 04:40] LABS: BASOPHILS ABSOLUTE AUTO 0.02 K/mm3 (0.00-0.23); BASOPHILS PERCENT AUTO 0 % (0-2); EOSINOPHILS ABSOLUTE AUTO 0.45 K/mm3 (0.00-0.68); EOSINOPHILS PERCENT AUTO 6 % (0-6); Hematocrit 31.0 % (37.0-53.0); Hemoglobin 9.2 g/dL (13.5-17.5); IMMATURE GRAN ABSOLUTE AUTO 0.12 K/mm3 (0.00-0.10); IMMATURE GRAN PERCENT AUTO 2 % (0-1); LYMPHOCYTES ABSOLUTE AUTO 0.60 K/mm3 (0.84-5.20); LYMPHOCYTES PERCENT AUTO 7 % (21-46); MONOCYTES ABSOLUTE AUTO 1.02 K/mm3 (0.16-1.47); MONOCYTES PERCENT AUTO 13 % (4-13); Mean Corpuscular HGB Conc 29.7 g/dL (31.5-36.5); Mean Corpuscular Volume 77 fL (80-100); NEUTROPHILS ABSOLUTE AUTO 5.86 K/mm3 (1.96-9.15); NEUTROPHILS PERCENT AUTO 73 % (41-73); NRBC ABSOLUTE 0.00 K/mm3 (0.00-0.02); NRBC Auto 0.0 /100 WBC (0.0-0.2); Platelet Count 145 K/mm3 (150-400); RDW Coefficient Variation 14.4 % (11.7-14.2); RDW Standard Deviation 40.0 fL (35.1-46.3)
[2025-08-30 05:05] LABS: Magnesium, Blood 2.1 mg/dL (1.6-2.4)
[2025-08-30 05:06] LABS: Alanine Aminotransfer (ALT/SGP 22.0 U/L (12-78); Albumin, Blood 1.9 g/dL (3.4-5.0); Albumin/Globulin Ratio 0.4 (0.8-1.8); Anion Gap 7.0 mmol/L (3-11); Aspartate Aminotrans (AST/SGOT 24.0 U/L (12-37); Bilirubin, Total 0.5 mg/dL (0.1-1.0); Blood Urea Nitrogen 26.0 mg/dL (8-24); CO2, Blood 27.0 mmol/L (21-32); Calcium, Blood 7.0 mg/dL (8.5-10.1); Chloride, Blood 110.0 mmol/L (98-108); Creatinine, Blood 1.8 mg/dL (0.60-1.20); Globulin, Blood 4.4 g/dL (2.2-4.0); Glucose, Blood 112.0 mg/dL (70-99); Potassium, Blood 3.8 mmol/L (3.5-5.5); Sodium, Blood 140.0 mmol/L (136-145); Total Protein, Blood 6.3 g/dL (6.4-8.2)
[2025-08-30] MEDS ORDERED: NITR100CA PO (09:04)
[2025-08-30] MEDS ORDERED: METO25ER PO (09:04)
--- NOTE | 2025-08-30 12:12 | NUR ---
DISCHARGE: PT D/C VIA WHEELCHAIR @1212. DISCHARGE INSTRUCTIONS AND EDUCATION PROVIDED. ALL BELONGINGS WITH PT.
== END 2025-08-30 12:15 | disposition home or self-care (01) | DRG 907 ==
LOC: ER → ICUE 02:39 → MEDS 02:39 → SURS 02:39 → MEDS 03:45 → ICUE 08-25 07:16 → PCU 08-27 20:19
PROVIDERS: Internal Medicine; Student in an Organized Health Care Education/Training Program; ADMIT Internal Medicine
PROC: 0T9B00Z Drainage of Bladder with Drainage Device, Open Approach (ICD-10-PCS; principal; 2025-08-24)
PROC: 0TPBX0Z Removal of Drainage Device from Bladder, External Approach (ICD-10-PCS; 2025-08-24)
PROC: 0D9670Z Drainage of Stomach with Drainage Device, Via Natural or Artificial Opening (ICD-10-PCS; 2025-08-24)
PROC: 5A2204Z Restoration of Cardiac Rhythm, Single (ICD-10-PCS; 2025-08-24)
PROC: 0DPW0JZ Removal of Synthetic Substitute from Peritoneum, Open Approach (ICD-10-PCS; 2025-08-24)
PROC: 02HV33Z Insertion of Infusion Device into Superior Vena Cava, Percutaneous Approach (ICD-10-PCS; 2025-08-25)
PROC: 3E033XZ Introduction of Vasopressor into Peripheral Vein, Percutaneous Approach (ICD-10-PCS; 2025-08-25)
PROC: 3E03329 Introduction of Other Anti-infective into Peripheral Vein, Percutaneous Approach (ICD-10-PCS; 2025-08-25)
PROC: 0DBA0ZZ Excision of Jejunum, Open Approach (ICD-10-PCS; 2025-08-27)
PROC: 0DN80ZZ Release Small Intestine, Open Approach (ICD-10-PCS; 2025-08-27)
DX: T85.898A Other specified complication of other internal prosthetic devices, implants and grafts, initial encounter (principal); J69.0 Pneumonitis due to inhalation of food and vomit; J96.01 Acute respiratory failure with hypoxia; J96.02 Acute respiratory failure with hypercapnia; K56.50 Intestinal adhesions [bands], unspecified as to partial versus complete obstruction; N30.00 Acute cystitis without hematuria; N17.9 Acute kidney failure, unspecified; I48.19 Other persistent atrial fibrillation; K59.00 Constipation, unspecified; M10.9 Gout, unspecified; F17.210 Nicotine dependence, cigarettes, uncomplicated; D63.1 Anemia in chronic kidney disease; I12.9 Hypertensive chronic kidney disease with stage 1 through stage 4 chronic kidney disease, or unspecified chronic kidney disease; N18.32 Chronic kidney disease, stage 3b; R73.03 Prediabetes; I95.9 Hypotension, unspecified; I48.0 Paroxysmal atrial fibrillation; T66.XXXA Radiation sickness, unspecified, initial encounter; E87.6 Hypokalemia; E83.51 Hypocalcemia; G47.30 Sleep apnea, unspecified; E66.01 Morbid (severe) obesity due to excess calories; Z60.2 Problems related to living alone; Z85.46 Personal history of malignant neoplasm of prostate; Z90.49 Acquired absence of other specified parts of digestive tract; Z90.89 Acquired absence of other organs; Z98.890 Other specified postprocedural states; Z79.891 Long term (current) use of opiate analgesic; Z79.899 Other long term (current) drug therapy; Z88.1 Allergy status to other antibiotic agents; Y84.2 Radiological procedure and radiotherapy as the cause of abnormal reaction of the patient, or of later complication, without mention of misadventure at the time of the procedure
CPT/HCPCS: 36415; 36569; 51705; 71045; 74177; 74250; 80048; 80053; 81001; 82803; 82947; 83690; 83735; 83880; 84100; 84484; 85025; 85027; 85520; 85610; 85730; 87040; 87077; 87086; 87186; 88307; 93005; 93010; 93246; 93306; 94660; 94762; 96374-59; 96375-59; 97116; 97161; 97530; 99285-25; A9270; C1751; C2627; J0153; J0282; J0612; J0692; J0696; J0744; J0780; J1160; J1171; J1650; J1938; J2060; J2250; J2270; J2312; J2371; J2405; J2543; J2704; J3010; J3475; J3480; J7030; J7040; J7050; J7120; Q9967